=== PATIENT | female | born 1955 | race Two or more races ===

== ENCOUNTER 2022-10-22 05:05 | Inpatient (IN) | payer MEDICARE, OTHER ==
[~2022-10-22] VITALS: Ht 160 cm; Wt 102.1 kg
--- NOTE | 2022-10-22 05:50 | NUR ---
RN NOTES; RECEIVED PT FROM ER IN RM 308-1,WALKING WITH DAUGTHER,AOX4 THOMAS SPEAKING TRANSLATE BY DAUGHTER,NO SIGN SOB/DISTRESS NOTED,DAY SURGERY (LEFT TOTAL KNEE ARTHROPLASTY WITH SUBCUTHENEOS RELEASE).
[2022-10-22] MEDS ORDERED: BUPIVACAINE 0.5 % PF 150 MG/30 ML VIAL ONE (06:01)
[2022-10-22] MEDS ORDERED: POLYMYXIN B SULFATE 500,000 UNITS ONE (06:01)
[2022-10-22] MEDS ORDERED: MIDAZOLAM HCL 2 MG/2ML VIAL ONE (06:22)
[2022-10-22] MEDS ORDERED: FENTANYL PF 250MCG/5ML AMPUL ONE (06:22)
[2022-10-22] MEDS ORDERED: HYDROMORPHONE INJ 2 MG/ML DISP.SYRIN ONE (06:22)
[2022-10-22] MEDS ORDERED: ATRACURIUM 100MG/10 ML MDV IV ONE (06:23)
[2022-10-22] MEDS ORDERED: FAMOTIDINE/PF INJ 20 MG/2 ML VIAL IV ONE (06:23)
[2022-10-22] MEDS ORDERED: TRANEXAMIC ACID 3,000 MG in SODIUM CHLORIDE IRRIG SOLUTION 70 ML IR ONE (07:00)
[2022-10-22] MEDS ORDERED: MEPERIDINE25 MG SYR 25 MG/ML VIAL ONE ×2 (09:20→09:48)
[2022-10-22] MEDS ORDERED: ONDANSETRON HCL/PF 4 MG/2 ML VIAL ONE (09:36)
[2022-10-22 10:45] VITALS: BP 142/85
[2022-10-22] MEDS ORDERED: DOCUSATE SODIUM 250 MG CAPSULE PO PRN (12:00)
[2022-10-22] MEDS ORDERED: ONDANSETRON HCL/PF 4 MG/2 ML VIAL IV PRN (12:00)
[2022-10-22] MEDS ORDERED: BISACODYL SUPP (10 MG) 10 MG/SUPP.RECT SUPP.RECT RC PRN (12:00)
[2022-10-22] MEDS ORDERED: SENNOSIDES 8.6 MG TABLET PO PRN (12:00)
[2022-10-22] MEDS ORDERED: IV D5/0.45 NACL 1,000 ML IV PRN (12:00)
[2022-10-22] MEDS ORDERED: ACETAMINOPHEN 325 MG TABLET PO PRN (12:00)
[2022-10-22] MEDS ORDERED: ZOLPIDEM TARTRATE 5 MG TABLET PO PRN (12:00)
[2022-10-22] MEDS: HYDROCODONE/APAP 5/325MG TABLET PO PRN ×2 (12:52→16:58)
[2022-10-22] MEDS: CEFAZOLIN 2 GM in IV D5W 100 ML IV SCH ×2 (15:16→22:13)
[2022-10-22 16:00] VITALS: BP 146/82
[2022-10-22] MEDS ORDERED: GLIP2.5T3 PO (17:15)
[2022-10-22] MEDS ORDERED: ERGO500093 PO (17:15)
[2022-10-22] MEDS ORDERED: DICL75TA5 PO (17:15)
[2022-10-22] MEDS ORDERED: OXYB10TA30 PO (17:15)
[2022-10-22] MEDS ORDERED: OMEP20CA15 PO (17:15)
[2022-10-22] MEDS ORDERED: ATOR20TA PO (17:15)
[2022-10-22] MEDS ORDERED: BUSP10TA35 PO (17:15)
[2022-10-22] MEDS ORDERED: METF-442 PO (17:15)
[2022-10-22] MEDS ORDERED: LISI10TA29 PO (17:15)
[2022-10-22] MEDS ORDERED: ASPI-1420 PO (17:15)
[2022-10-22] MEDS ORDERED: diphenhydrAMINE HCL 25 MG CAPSULE PO PRN (19:00)
--- NOTE | 2022-10-22 19:30 | NUR ---
MS RN OPENING NOTE RECEIVED PT RESTING IN BED. VERBALLY RESPONSIVE. A/O X4, ST HELENIAN SPEAKING, AND ABLE TO MAKE NEEDS KNOWN. PT ON O2 @ 2LPM VIA NC, TOLERATING WELL. NO SOB OR S/S OF RESPIRATORY DISTRESS. BREATHING EVEN AND UNLABORED. IV ACCESS R WRIST 20G RUNNING D5 1/2 NS @ 125 ML/HR, INTACT AND PATENT. WITH ARANA CATHETER DRAINING URINE BY GRAVITY. SAFETY PRECAUTIONS IN PLACE. BED IN LOWEST LOCKED POSITION, HOB ELEVATED, SIDE RAILS UP X3, AND CALL LIGHT AND TABLE WITHIN REACH. ALL NEEDS MET AT THIS TIME.
[2022-10-22] MEDS: DOCUSATE SODIUM 100 MG CAPSULE PO SCH (19:37)
[2022-10-22 20:17] VITALS: BP 134/75
[2022-10-22] MEDS: HYDROCODONE/APAP 10/325MG TABLET PO PRN (22:13)
--- NOTE | 2022-10-22 22:13 | NUR ---
RN NOTE PT COMPLAINED OF KNEE PAIN 06/27. ADMINISTERED NORCO 10-325 MG FOR SEVERE PAIN ORDERED. MADE COMFORTABLE IN BED. ALL NEEDS MET AT THIS TIME.
--- NOTE | 2022-10-23 01:07 | NUR ---
RN NOTE PT STATED SHE HAS HISTORY OF DM. WANTED BS CHECKED AND IT WAS 275. INFORMED DR PETERSON WITH NEW ORDER FOR ACCUCHECK AND MILD SLIDING SCALE. ALSO ORDERED IVF CHANGE FROM D5 1/2 NS TO NS @ 125 ML/HR. ORDERS NOTED AND CARRIED OUT.
[2022-10-23] MEDS: IV NS 0.9% 1,000 ML IV SCH ×2 (01:24→10:01)
[2022-10-23] MEDS: HYDROCODONE/APAP 10/325MG TABLET PO PRN ×6 (01:24→21:40)
--- NOTE | 2022-10-23 01:24 | NUR ---
RN NOTE PT COMPLAINED OF KNEE PAIN 06/27. ADMINISTERED NORCO 10-325 MG FOR SEVERE PAIN ORDERED. MADE COMFORTABLE IN BED. ALL NEEDS MET AT THIS TIME.
[2022-10-23] MEDS ORDERED: DEXTROSE 50%-WATER 50 ML DISP.SYRIN IV PRN (01:30)
--- NOTE | 2022-10-23 05:27 | NUR ---
RN NOTE PT COMPLAINED OF KNEE PAIN 06/27. ADMINISTERED NORCO 10-325 MG FOR SEVERE PAIN ORDERED. MADE COMFORTABLE IN BED. ALL NEEDS MET AT THIS TIME.
--- NOTE | 2022-10-23 05:49 | NUR ---
RN NOTE SPOKE WITH DR BADILLO WITH NEW ORDER FOR DILAUDID 0.5 MG IV Q2H PRN FOR SEVERE PAIN. ORDER NOTED, READ BACK, AND CARRIED OUT.
[2022-10-23] MEDS ORDERED: HYDROMORPHONE 1 MG/1 ML DISP.SYRIN IV PRN (06:00)
[2022-10-23 06:22] LABS: BASOPHILS % (AUTO) 0.1 % (0.0-2.0); HEMATOCRIT 38 % (33-45); HEMOGLOBIN 12.4 g/dL (11.5-14.8); LYMPHOCYTES # (AUTO) 0.8 K/uL (0.8-4.8); LYMPHOCYTES % (AUTO) 4.5 % (20.0-44.0); MEAN CORPUSCULAR HGB CONC 33 g/dl (31.0-36.0); MEAN CORPUSCULAR VOLUME 96 fL (82-100); MONOCYTES % (AUTO) 5.4 % (2.0-12.0); NEUTROPHILS # (AUTO) 15.8 K/uL (1.8-8.9); PLATELET COUNT (AUTO) 161 K/uL (150-450); RED BLOOD CELL COUNT(AUTO) 3.92 MIL/uL (4.0-5.2); WHITE BLOOD COUNT (AUTO) 17.6 K/uL (4.3-11.0)
[2022-10-23] MEDS: BLOOD SUGAR DIAGNOSTIC 1 EACH STRIP IN SCH ×4 (06:37→21:28)
[2022-10-23] MEDS: INSULIN REGULAR, HUMAN 100 UNIT/ML 3 ML VIAL SQ PRN ×3 (06:39→21:30)
--- NOTE | 2022-10-23 06:46 | NUR ---
MS RN CLOSING NOTE PT RESTING IN BED. VERBALLY RESPONSIVE. A/O X4, MACEDONIAN SPEAKING, AND ABLE TO MAKE NEEDS KNOWN. PT ON O2 @ 2LPM VIA NC, TOLERATING WELL. NO SOB OR S/S OF RESPIRATORY DISTRESS. BREATHING EVEN AND UNLABORED. IV ACCESS R WRIST 20G RUNNING NS @ 125 ML/HR, INTACT AND PATENT. WITH ARANA CATHETER DRAINING URINE BY GRAVITY. ALL DUE MEDS GIVEN ORDERED. KEPT CLEAN AND DRY. SAFETY PRECAUTIONS IN PLACE AT ALL TIMES. BED IN LOWEST LOCKED POSITION, HOB ELEVATED, SIDE RAILS UP X3, AND CALL LIGHT AND TABLE WITHIN REACH. ALL NEEDS MET AT THIS TIME AND WILL ENDORSE TO ONCOMING NURSE FOR PRATIMA.
--- NOTE | 2022-10-23 07:00 | NUR ---
MS RN OPENING NOTES: RECEIVED PT IN BED, AWAKE ALERT AND ORIENTED X4 MACEDONIAN SPEAKING BUT ABLE TO MAKE NEEDS KNOWN AND UNDERSTAND ICELANDIC. NO SOB OR CARDIAC DISTRESS NOTED, ON PAIN MANAGEMENT ORDERED CURRENT PAIN LEVEL 2/10. NOTED WITH IV ACCESS ON R WRIST GAUGE 20 PATENT, INTACT AND INFUSING NS 1L @25 ML/HR. NOTED WITH ARANA CATHETER INTACT DRAINING CLEAR YELLOW COLORED URINE BY GRAVITY. NOTED WITH LEFT LOWER LEG IMMOBILIZED, PT ABLE TO MOVE TOES. SAFETY MEASURES MAINTAINEDl: BED LOCKED AND IN LOWEST POSITION, SIDE RAILS UP X 2. CALL LIGHT IN EASY REACH FOR HELP. WILL MONITOR PT ACCORDINGLY.
[2022-10-23 07:19] LABS: CALCIUM, SERUM 8.1 mg/dL (8.5-10.1); CREATININE 0.8 mg/dL (0.6-1.3); MAGNESIUM 1.6 mg/dL (1.8-2.4); PHOSPHORUS 3.3 mg/dL (2.5-4.9); POTASSIUM 3.4 mmol/L (3.5-5.1)
[2022-10-23 08:00] VITALS: BP 132/68
[2022-10-23] MEDS: DOCUSATE SODIUM 100 MG CAPSULE PO SCH ×2 (08:25→16:23)
[2022-10-23] MEDS: ASPIRIN 325 MG TABLET PO SCH (08:25)
[2022-10-23] MEDS ORDERED: MAGNESIUM OXIDE 400 MG TABLET PO ONE (10:00)
[2022-10-23] MEDS ORDERED: POTASSIUM CHLORIDE 20 MEQ TAB.PRT.SR PO SCH (10:30)
--- NOTE | 2022-10-23 11:16 | NUR ---
RN NOTES: PT AND FAMILY REQUESTED TO DC IV FLUIDS, PT COMPLAINED ACID REFLUX AND PER PT SHES TAKING PANTOPRAZOLE TAB PRN. INFORMED MD BOATENG: ORDERED DC THE IV FLUIDS AND PANTOPRAZOLE 40MG PO DAILY. ALL ORDERS NOTED AND CARRIED OUT.
[2022-10-23] MEDS: PANTOPRAZOLE 40 MG TABLET.DR PO SCH (11:24)
[2022-10-23] MEDS ORDERED: ERGOCALCIFEROL (VITAMIN D 2) 50,000 UNIT CAPSULE PO SCH (11:30)
[2022-10-23] MEDS ORDERED: POTASSIUM CHLORIDE 20 MEQ TAB.PRT.SR PO ONE (11:30)
[2022-10-23] MEDS ORDERED: busPIRone HCL 10 MG TABLET PO SCH (11:30)
[2022-10-23] MEDS: METFORMIN 500 MG TABLET PO SCH ×2 (12:41→16:23)
[2022-10-23] MEDS: glipiZIDE XL 2.5 MG TAB.OSM.24 PO SCH (12:41)
[2022-10-23] MEDS: LISINOPRIL (10MG) 10 MG TABLET PO SCH (12:42)
--- NOTE | 2022-10-23 12:56 | NUR ---
RN NOTES: @8211 RECEIVED A CALL FROM [facility] (LAB) CRITICAL RESULT PROCALCITONIN 44.6. INFORMED GALILEA SOSAO AT THIS TIME.
--- NOTE | 2022-10-23 15:39 | NUR ---
RN NOTES: RECEIVED A CALL FROM [facility], MRSA (+) BOTH NARES. ORDERED BACTROBAN OINT APPLY TO BOTH NARES BID.
[2022-10-23 16:00] VITALS: BP 131/71
[2022-10-23] MEDS ORDERED: DICLOFENAC SODIUM 25 MG TABLET.DR PO SCH (17:00)
[2022-10-23 17:19] LABS: BILIRUBIN,URINE NEGATIVE (NEGATIVE); COLOR,URINE YELLOW (YELLOW); LEUKOCYTE ESTERASE ,URINE NEGATIVE (NEGATIVE); NITRITE, URINE NEGATIVE (NEGATIVE); PH,URINE 5.5 (5.0-8.0); PROTEIN,URINE 1+ mg/dl (NEGATIVE); UGLUCOSE NEGATIVE (NEGATIVE); UROBILINOGEN,URINE 0.2 EU/dL (0.2)
[2022-10-23 17:32] LABS: BACTERIA,URINE None seen /HPF (None Seen); FINE GRANULAR CASTS,URINE Few /LPF (None Seen); MUCUS,URINE Few /LPF (None Seen); RBC,URINE 51-80 /HPF (0-2); SQUAMOUS EPITHELIAL CELL,UR RARE /HPF (None Seen); WBC,URINE 0-2 /HPF (0-3)
--- NOTE | 2022-10-23 18:49 | NUR ---
MS RN CLOSING NOTES: PT IN BED, AWAKE ALERT AND ORIENTED X4 LAO SPEAKING BUT ABLE TO MAKE NEEDS KNOWN AND UNDERSTAND CZECH. NO SOB OR CARDIAC DISTRESS NOTED, ON PAIN MANAGEMENT ORDERED. IV ACCESS ON R WRIST GAUGE 20 PATENT, INTACT AND SALINE LOCKED. NOTED WITH ARANA CATHETER INTACT DRAINING CLEAR YELLOW COLORED URINE BY GRAVITY. NOTED WITH LEFT LOWER LEG IMMOBILIZED, PT ABLE TO MOVE TOES DRESSING INTACT WITHOUT UNUSUAL DISCHARGE. SAFETY MEASURES MAINTAINEDl: BED LOCKED AND IN LOWEST POSITION, SIDE RAILS UP X 2. CALL LIGHT IN EASY REACH FOR HELP. ENDORSE TO TRANSPORT OPERATIONS INSPECTOR RN FOR PRATIMA.
--- NOTE | 2022-10-23 19:30 | NUR ---
MS RN OPENING NOTE RECEIVED PT RESTING IN BED, VERBALLY RESPONSIVE. A/O X4, ANGOLAN SPEAKING, AND ABLE TO MAKE NEEDS KNOWN. PT ON O2 @ 2LPM VIA NC, TOLERATING WELL. NO SOB OR S/S OF RESPIRATORY DISTRESS. BREATHING EVEN AND UNLABORED. IV ACCES R WRIST 20G SL, INTACT AND PATENT. WITH ARANA CATHETER DRAINING URINE BY GRAVITY. SAFETY PRECAUTIONS IN PLACE. BED IN LOWEST LOCKED POSITION, HOB ELEVATED, SIDE RAILS UP X3, AND CALL LIGHT AND TABLE WITHIN REACH. ALL NEEDS MET AT THIS TIME.
[2022-10-23 20:00] VITALS: BP 120/76
[2022-10-23] MEDS: ATORVASTATIN 10 MG TABLET PO SCH (21:21)
[2022-10-23] MEDS: MUPIROCIN OINT 2% 22 GM TUBE NS SCH (21:21)
--- NOTE | 2022-10-23 21:41 | NUR ---
RN NOTE PT COMPLAINED OF L KNEE PAIN 04/26. ADMINISTERED NORCO 10-325 MG FOR MODERATE PAIN ORDERED. MADE COMFORTABLE IN BED. ALL NEEDS MET AT THIS TIME.
[2022-10-24 04:08] LABS: BAND % (MANUAL) 16 % (0.0-5.0); BASOPHILS % (MANUAL) 0 % (0.0-2.0); EOSINOPHILS % (MANUAL) 0 % (0-4); LYMPHOCYTES % (MANUAL) 5 % (16-48); MONOCYTES % (MANUAL) 13 % (0-11.0); NEUTROPHILS % (MANUAL) 66 (42-76)
[2022-10-24 05:52] LABS: BASOPHILS % (AUTO) 0.3 % (0.0-2.0); EOSINOPHILS % (AUTO) 0.4 % (0.0-6.0); HEMATOCRIT 37 % (33-45); LYMPHOCYTES # (AUTO) 1.1 K/uL (0.8-4.8); LYMPHOCYTES % (AUTO) 7.5 % (20.0-44.0); MEAN CORPUSCULAR HGB CONC 33 g/dl (31.0-36.0); MEAN CORPUSCULAR VOLUME 95 fL (82-100); MONOCYTES # (AUTO) 0.6 K/uL (0.1-1.30); MONOCYTES % (AUTO) 4.5 % (2.0-12.0); NEUTROPHILS # (AUTO) 12.7 K/uL (1.8-8.9); NEUTROPHILS % (AUTO) 87.3 % (43.0-81.0); PLATELET COUNT (AUTO) 166 K/uL (150-450); RED BLOOD CELL COUNT(AUTO) 3.82 MIL/uL (4.0-5.2); WHITE BLOOD COUNT (AUTO) 14.5 K/uL (4.3-11.0)
[2022-10-24 06:10] LABS: CALCIUM, SERUM 8.7 mg/dL (8.5-10.1); CREATININE 0.7 mg/dL (0.6-1.3); MAGNESIUM 1.8 mg/dL (1.8-2.4); PHOSPHORUS 2.3 mg/dL (2.5-4.9); POTASSIUM 3.9 mmol/L (3.5-5.1)
[2022-10-24] MEDS: BLOOD SUGAR DIAGNOSTIC 1 EACH STRIP IN SCH ×4 (06:47→21:13)
[2022-10-24] MEDS: INSULIN REGULAR, HUMAN 100 UNIT/ML 3 ML VIAL SQ PRN ×4 (06:47→21:18)
--- NOTE | 2022-10-24 07:00 | NUR ---
MS RN OPENING NOTES: RECEIVED PT IN BED, AWAKE ALERT AND ORIENTED X4 CROATIAN SPEAKING BUT ABLE TO MAKE NEEDS KNOWN AND UNDERSTAND ARMENIAN. NO SOB OR CARDIAC DISTRESS NOTED, ON PAIN MANAGEMENT ORDERED CURRENT PAIN LEVEL /10. NOTED WITH IV ACCESS ON R WRIST GAUGE 20 PATENT, INTACT AND SL. NOTED WITH ARANA CATHETER INTACT DRAINING CLEAR YELLOW COLORED URINE BY GRAVITY. NOTED WITH LEFT LOWER LEG IMMOBILIZER, PT ABLE TO MOVE TOES, NO UNUSUAL DISCHARGES NOTED. SAFETY MEASURES MAINTAINED: BED LOCKED AND IN LOWEST POSITION, SIDE RAILS UP X 2. CALL LIGHT IN EASY REACH FOR HELP. WILL MONITOR PT ACCORDINGLY.
--- NOTE | 2022-10-24 07:02 | NUR ---
MS RN CLOSING NOTE PT AWAKE IN BED. A/O X4, ALBANIAN SPEAKING, AND ABLE TO MAKE NEEDS KNOWN. PT ON O2 @ 2LPM VIA NC, TOLERATING WELL. NO SOB OR S/S OF RESPIRATORY DISTRESS. BREATHING EVEN AND UNLABORED. IV ACCESS R WRIST 20G SL, INTACT AND PATENT. WITH ARANA CATHETER DRAINING URINE BY GRAVITY. CURRENT BS 166, REFUSING INSULIN AT THIS TIME. EDUCATED PT ON NONCOMPLIANCE, PT UNDERSTOOD AND STILL REFUSED. PAIN GREATLY DECREASED THIS SHIFT, SLEPT 9 HOURS LAST NIGHT. SAFETY PRECAUTIONS IN PLACE AT ALL TIMES. BED IN LOWEST LOCKED POSITION, HOB ELEVATED, SIDE RAILS UP X3, AND CALL LIGHT AND TABLE WITHIN REACH. ALL NEEDS MET AT THIS TIME AND WILL ENDORSE TO ONCOMING NURSE FOR PRATIMA.
[2022-10-24 08:00] VITALS: BP 137/84
[2022-10-24] MEDS: HYDROCODONE/APAP 10/325MG TABLET PO PRN ×4 (08:14→19:17)
[2022-10-24] MEDS: glipiZIDE XL 2.5 MG TAB.OSM.24 PO SCH (08:14)
[2022-10-24] MEDS: PANTOPRAZOLE 40 MG TABLET.DR PO SCH (08:15)
[2022-10-24] MEDS: METFORMIN 500 MG TABLET PO SCH ×2 (08:15→16:51)
[2022-10-24] MEDS: DOCUSATE SODIUM 100 MG CAPSULE PO SCH ×2 (08:15→16:58)
[2022-10-24] MEDS: ASPIRIN 325 MG TABLET PO SCH (08:15)
[2022-10-24] MEDS: LISINOPRIL (10MG) 10 MG TABLET PO SCH (08:16)
[2022-10-24] MEDS: busPIRone 5 MG TABLET PO SCH (08:16)
[2022-10-24] MEDS: MUPIROCIN OINT 2% 22 GM TUBE NS SCH ×2 (08:34→21:04)
[2022-10-24] MEDS ORDERED: K PHOS NEUTRAL 250 MG TABLET PO ONE (09:00)
[2022-10-24] MEDS ORDERED: ASPIRIN EC 81 MG TABLET.DR PO SCH (09:00)
--- NOTE | 2022-10-24 09:32 | NUR ---
RN NOTES: PER PHYSICAL THERAPIST PT IS ABLE TO MOVE HAD 5 STEPS WALK AND PT IS CHRISTY MOTIVATED. PT STILL IN PAIN BUT ABLE TO DO THE THERAPY.
--- NOTE | 2022-10-24 13:20 | NUR ---
RN NOTES: PT COMPLAINED PAIN 05/27, AND DR BOATENG WAS AT BED SIDE AT THAT TIME AND INFORMED RN. PULLED OUT NORCO AND WHEN RN GAVE IT TO PT SHE SAID SHE WILL NOT TAKE IT AND SHE HAS NO PAIN AND RETURNED NORCO BACK TO [facility]. TUAN AT BED SIDE (DAUGHTER), INFORMED DR BOATENG. AND MD WENT TO PT'S ROOM AND EXPLAINED THE REASON/RISK/BENEFITS OF TAKING PAIN MEDS. PT WANTED TO HAVE THE PAIN MEDS GOT NORCO TAB AND PT TOOK IT.
[2022-10-24] MEDS ORDERED: LACTULOSE 10 G/15 ML UDC (PYXIS) PO ONE (14:00)
[2022-10-24] MEDS ORDERED: SORBITOL SOLUTION 70% 30 ML SOLUTION PO ONE (14:00)
[2022-10-24 16:00] VITALS: BP 136/71
--- NOTE | 2022-10-24 18:46 | NUR ---
MS RN CLOSING NOTES: PT IN BED, AWAKE ALERT AND ORIENTED X4 ARABIC SPEAKING BUT ABLE TO MAKE NEEDS KNOWN AND UNDERSTAND SLOVENIAN. FAMILY AT BED SIDE. NO SOB OR CARDIAC DISTRESS NOTED, ON PAIN MANAGEMENT ORDERED. IV ACCESS ON R WRIST GAUGE 20 PATENT, INTACT AND SALINE LOCKED. NOTED WITH ARANA CATHETER INTACT DRAINING CLEAR YELLOW COLORED URINE BY GRAVITY. NOTED WITH LEFT LOWER LEG IMMOBILIZED, PT ABLE TO MOVE TOES DRESSING INTACT WITHOUT UNUSUAL DISCHARGE. PATIENT HAD 7X BM,PT ABLE TO GET UP IN COMMODE. SAFETY MEASURES MAINTAINED: BED LOCKED AND IN LOWEST POSITION, SIDE RAILS UP X 2. CALL LIGHT IN EASY REACH FOR HELP. ENDORSE TO PROFESSIONAL DEVELOPMENT DIRECTOR RN FOR PRATIMA.
--- NOTE | 2022-10-24 19:30 | NUR ---
MS RN OPENING NOTES - RECEIVED PATIENT AWAKE, BED IN [facility]S. DAUGHTER ON BEDSIDE. A/O X4, INDIAN SPEAKING. BREATHING EVEN AND NON-LABORED ON ROOM AIR. C/O MODERATE LEFT LOWER EXTREMITY PAIN. HAS RIGHT WRIST IV ACCESS #20G AND SALINE LOCKED. MILD REDNESS NOTED. HAS LEFT LEG IMMOBILIZER. HAS INDWELLING ARANA CATHETER DRAINING YELLOW URINE TO BAG BY GRAVITY. GREEN WATERY STOOL NOTED. SAFETY PRECAUTIONS IN PLACE: BED LOCKED AND IN LOW POSITION, SIDE RAILS UP X3, CALL LIGHT WITHIN REACH. WILL CONTINUE PLAN OF CARE.
[2022-10-24 20:00] VITALS: BP 155/82
[2022-10-24] MEDS: ATORVASTATIN 10 MG TABLET PO SCH (21:13)
[2022-10-25] MEDS: HYDROCODONE/APAP 10/325MG TABLET PO PRN ×3 (03:32→23:42)
--- NOTE | 2022-10-25 03:33 | NUR ---
GAVE PATIENT PRN NORCO 10-325 TO MANAGE LEFT LOWER EXTREMITY PAIN AND OFFLOADED WITH PILLOW.
[2022-10-25 06:17] LABS: BASOPHILS % (AUTO) 0.4 % (0.0-2.0); EOSINOPHILS % (AUTO) 0.7 % (0.0-6.0); HEMATOCRIT 37 % (33-45); HEMOGLOBIN 12.1 g/dL (11.5-14.8); LYMPHOCYTES # (AUTO) 1.3 K/uL (0.8-4.8); LYMPHOCYTES % (AUTO) 11.4 % (20.0-44.0); MEAN CORPUSCULAR HGB CONC 33 g/dl (31.0-36.0); MEAN CORPUSCULAR VOLUME 96 fL (82-100); MONOCYTES # (AUTO) 0.6 K/uL (0.1-1.30); MONOCYTES % (AUTO) 5.2 % (2.0-12.0); NEUTROPHILS # (AUTO) 9.4 K/uL (1.8-8.9); NEUTROPHILS % (AUTO) 82.3 % (43.0-81.0); PLATELET COUNT (AUTO) 186 K/uL (150-450); RED BLOOD CELL COUNT(AUTO) 3.84 MIL/uL (4.0-5.2); WHITE BLOOD COUNT (AUTO) 11.4 K/uL (4.3-11.0)
[2022-10-25 06:38] LABS: CALCIUM, SERUM 9.1 mg/dL (8.5-10.1); CREATININE 0.8 mg/dL (0.6-1.3); MAGNESIUM 1.9 mg/dL (1.8-2.4); PHOSPHORUS 2.7 mg/dL (2.5-4.9)
[2022-10-25] MEDS: BLOOD SUGAR DIAGNOSTIC 1 EACH STRIP IN SCH ×4 (06:47→21:17)
[2022-10-25] MEDS: INSULIN REGULAR, HUMAN 100 UNIT/ML 3 ML VIAL SQ PRN ×4 (06:47→21:17)
--- NOTE | 2022-10-25 06:47 | NUR ---
PATIENT REFUSED HER REGULAR INSULIN, BS 151. EXPLAINED RISKS AND BENEFITS, STILL REFUSED. VERBALIZED SHE IS TAKING HER DM MEDS THIS MORNING.
--- NOTE | 2022-10-25 07:31 | NUR ---
MS RN CLOSING NOTES - PATIENT IN BED ASLEEP, EASY TO AROUSE. ABLE TO VERBALIZE NEEDS AND UNDERSTANDS SOME SINHALA. DENIES PAIN AT THIS TIME. AFEBRILE. APPLIED COLD PACK TO RIGHT WRIST IV ACCESS #20G, INTACT, PATENT AND FLUSHING. LEFT LEG SIERRA BANDAGE C/D/I. CLEAR YELLOW URINE OUTPUT NOTED. NO BM THROUGHOUT THE NIGHT. ALL DUE MEDS GIVEN AND NEEDS ATTENDED. SAFETY PRECAUTIONS MAINTAINED. WILL ENDORSE TO NEXT SHIFT FOR CONTINUITY OF CARE.
--- NOTE | 2022-10-25 07:35 | NUR ---
MS RN OPENING NOTES - RECEIVED PATIENT AWAKE, BED IN [facility]S. . A/O X4, WALLISIAN SPEAKING. ROOM AIR WITH NO SOB OR DISTRESS NOTED . NO C/O OF PAIN AND DISCOMFORT . HAS RIGHT WRIST IV ACCESS #20G AND SALINE LOCKED. MILD REDNESS NOTED. HAS LEFT LEG IMMOBILIZER. HAS INDWELLING ARANA CATHETER DRAINING YELLOW URINE TO BAG BY GRAVITY. . SAFETY PRECAUTIONS IN PLACE: BED LOCKED AND IN LOW POSITION, SIDE RAILS UP X3, CALL LIGHT WITHIN REACH. WILL CONTINUE PLAN OF CARE.
[2022-10-25 08:00] VITALS: BP 145/79
[2022-10-25] MEDS: ASPIRIN 325 MG TABLET PO SCH (09:15)
[2022-10-25] MEDS: METFORMIN 500 MG TABLET PO SCH ×2 (09:16→17:23)
[2022-10-25] MEDS: PANTOPRAZOLE 40 MG TABLET.DR PO SCH (09:16)
[2022-10-25] MEDS: glipiZIDE XL 2.5 MG TAB.OSM.24 PO SCH (09:16)
[2022-10-25] MEDS: busPIRone 5 MG TABLET PO SCH (09:16)
[2022-10-25] MEDS: DOCUSATE SODIUM 100 MG CAPSULE PO SCH ×2 (09:16→17:23)
[2022-10-25] MEDS: LISINOPRIL (10MG) 10 MG TABLET PO SCH (09:17)
[2022-10-25] MEDS: MUPIROCIN OINT 2% 22 GM TUBE NS SCH ×2 (09:30→21:07)
--- NOTE | 2022-10-25 10:47 | NUR ---
RN NOTES PATIENT C/O OF PAIN ADN DISCOMFOR T ON THE LEFT LEG AND NORCO GIVEN ORDERED , ABLE TO SWALLOW WHOLE PILL AND MONITOR FOR ANY CHANGES
[2022-10-25 16:00] VITALS: BP 115/67
--- NOTE | 2022-10-25 18:44 | NUR ---
MS RN CLOSING NOTES - PATIENT AWAKE, BED , VERBALLY RESPONSIVE AND ABLE TO MAKE NEEDS KNOWN , . A/O X4, URDU SPEAKING. ROOM AIR WITH NO SOB OR DISTRESS NOTED . C/O OF PAIN AND DISCOMFORT ON THE LEFT LOWER LEG AND NORCO GVIEN ORDERED , SEEN BY PT AND ABLE TO AMBULATED LIKE 10 FEET MIN ASSIST WITH FWW , CPM MACHINE WAS ATTACHED AND TREATMENT TOLERATED FOR 1 HOUR . NEW LEFT FORERAM IV ACCESS #22 G AND SALINE LOCKED , PATENT AND INTACT . HAS LEFT LEG IMMOBILIZER. HAS INDWELLING ARANA CATHETER DRAINING YELLOW URINE TO BAG BY GRAVITY. . SAFETY PRECAUTIONS IN PLACE: BED LOCKED AND IN LOW POSITION, SIDE RAILS UP X3, CALL LIGHT WITHIN REACH. WILL ENDORSED TO NEXT SHIFT
--- NOTE | 2022-10-25 20:05 | NUR ---
RN OPENING NOTES RECEIVED PT IN BED, ASLEEP, AWAKENS TO VERBAL STIMULI. AOx4, ABLE TO MAKE NEEDS KNOWN. ON RA AND TOLERATING WELL. NO SOB NOTED. NO S/SX OF RESPIRATORY DISTRESS NOTED. IV ACCESS IN R WRIST #22G. IV IS INTACT, PATENT, AND FLUSHING WELL. SAFETY PRECAUTIONS IN PLACE: BED IN LOWEST, LOCKED POSITION, SIDERAILS UPx2, AND BRAKES ON. TABLE AND CALL LIGHT WITHIN REACH. ALL NEEDS MET AT THIS TIME.
[2022-10-25 20:37] VITALS: BP 136/62
[2022-10-25] MEDS: ATORVASTATIN 10 MG TABLET PO SCH (21:07)
--- NOTE | 2022-10-25 23:42 | NUR ---
RN NOTES ADMINISTERED NORCO FOR PAIN PER MD ORDER. VS WNL.
[2022-10-26] MEDS: BLOOD SUGAR DIAGNOSTIC 1 EACH STRIP IN SCH ×2 (06:53→11:43)
[2022-10-26] MEDS: INSULIN REGULAR, HUMAN 100 UNIT/ML 3 ML VIAL SQ PRN ×2 (06:54→11:48)
--- NOTE | 2022-10-26 07:35 | NUR ---
RN CLOSING NOTES PT IN BED, ASLEEP, AWAKENS TO VERBAL STIMULI. AOx4, ABLE TO MAKE NEEDS KNOWN. ON RA AND TOLERATING WELL. NO SOB NOTED. NO S/SX OF RESPIRATORY DISTRESS NOTED. IV ACCESS IN R WRIST #22G. IV IS INTACT, PATENT, AND FLUSHING WELL. ALL ORDERS CARRIED OUT. ALL NEEDS MET. PT KEPT CLEAN AND DRY. REFUSED PAIN MEDICATION THROUGHOUT SHIFT. SAFETY PRECAUTIONS IN PLACE: BED IN LOWEST, LOCKED POSITION, SIDERAILS UPx2, AND BRAKES ON. TABLE AND CALL LIGHT WITHIN REACH. WILL ENDORSE TO ONCOMING SHIFT FOR PRATIMA.
--- NOTE | 2022-10-26 07:36 | NUR ---
RN OPENING NOTE RECEIVED PATIENT IN BED, AWAKE, NO SIGNS OF ACUTE DISTRESS NOTED. ON ROOM AIR, TOLERATING WELL. DENIES ANY PAIN OR DISCOMFORT AT THIS TIME. NOTED WITH IV ACCESS ON LEFT FOREARM #22G, INTACT AND PATENT, SALINE LOCKED. WITH F/C INTACT DRAINING CLEAR YELLOW URINE VIA GRAVITY. NOTED WITH LEFT LEG IMMOBILIZER IN PLACE. SAFETY MEASURE IN PLACE. BED IN LOWEST AND LOCKED POSITION, SIDE RAILS UP X2, CALL LIGHT PLACED WITHIN EASY REACH. WILL CONTINUE TO MONITOR PATIENT.
[2022-10-26 08:00] VITALS: BP 104/68
[2022-10-26] MEDS: PANTOPRAZOLE 40 MG TABLET.DR PO SCH (08:09)
[2022-10-26] MEDS: ASPIRIN 325 MG TABLET PO SCH (08:09)
[2022-10-26] MEDS: METFORMIN 500 MG TABLET PO SCH (08:09)
[2022-10-26] MEDS: busPIRone 5 MG TABLET PO SCH (08:09)
[2022-10-26] MEDS: glipiZIDE XL 2.5 MG TAB.OSM.24 PO SCH (08:09)
[2022-10-26] MEDS: DOCUSATE SODIUM 100 MG CAPSULE PO SCH (08:09)
[2022-10-26 08:10] VITALS: BP 104/66
[2022-10-26] MEDS: LISINOPRIL (10MG) 10 MG TABLET PO SCH (08:10)
[2022-10-26] MEDS: MUPIROCIN OINT 2% 22 GM TUBE NS SCH (08:12)
[2022-10-26] MEDS: HYDROCODONE/APAP 10/325MG TABLET PO PRN (08:59)
[2022-10-26] MEDS ORDERED: ASPI-992 PO (11:50)
--- NOTE | 2022-10-26 15:59 | NUR ---
BREAKFAST COOK NOTE DISCHARGED THIS 67 Y/O FEMALE PATIENT TO HOME IN STABLE CONDITION. PATIENT REMAINS AWAKE, ALERT AND ORIENTED X4, VERBALLY RESPONSIVE. NO SIGNS OF ACUTE DISTRESS NOTED. EXIT CARE FOLDER AND DISCHARGE INSTRUCTIONS PROVIDED TO PATIENT AND DAUGHTER WITH VERBALIZATION OF UNDERSTANDING. ALL BELONGINGS ACCOUNTED FOR, FORM SIGNED BY BRENDON DICKERSON. IV ACCESS REMOVED, NO BLEEDING NOTED ON SITE, PRESSURE DRESSING APPLIED TO SITE. ARM NAME BAND REMOVED. PATIENT LEFT UNIT @1555 VIA GURNEY, PATIENT PICKED UP BY BRENDON DICKERSON [facility]. CN AWARE OF DISCHARGE.
== END 2022-10-26 16:00 | disposition home health service (06) | DRG 470 ==
LOC: DS 05:05 → MED 05:07
PROVIDERS: ADMIT Nurse Practitioner Acute Care; ATTEND Nurse Practitioner Acute Care
PROC: 0SRD0J9 Replacement of Left Knee Joint with Synthetic Substitute, Cemented, Open Approach (ICD-10-PCS; principal; 2022-10-22)
DX: M17.12 Unilateral primary osteoarthritis, left knee (principal); D68.59 Other primary thrombophilia; Z20.822 Contact with and (suspected) exposure to COVID-19; E66.01 Morbid (severe) obesity due to excess calories; E11.9 Type 2 diabetes mellitus without complications; I10 Essential (primary) hypertension; F32.A Depression, unspecified; F41.9 Anxiety disorder, unspecified; K21.9 Gastro-esophageal reflux disease without esophagitis; Z79.82 Long term (current) use of aspirin; Z79.899 Other long term (current) drug therapy; Z82.49 Family history of ischemic heart disease and other diseases of the circulatory system; Z83.3 Family history of diabetes mellitus; Z83.49 Family history of other endocrine, nutritional and metabolic diseases
CPT/HCPCS: 36415; 80048-TC; 81001; 82962-TC; 83735-TC; 84100-TC; 85025-TC; 86850-TC; 87081-TC; 87086-TC; 88305-TC; 88311-TC; 97110-TC; 97112-TC; 97116-TC; 97530-TC; A4217; C1713; C1776; G0378; J0330; J0690; J1170; J1815; J2175; J2250; J2405; J2704; J2765; J3010; J3490; J7030; J7060; L1830